=== PATIENT | male | born 1960 | race Caucasian/White ===

== ENCOUNTER → 2020-07-24 | Outpatient (CLI) | payer OTHER ==
--- NOTE | 2020-07-24 15:54 | KCIC ---
XR KNEE_RT 1-2 VIEWS 07/24/2020 12:55 PM INDICATION: Right knee pain. Burning up and down the right leg COMPARISON: None available. TECHNIQUE: 3 views of the right knee are provided. FINDINGS: There is a healed fracture deformity image of the right femur. No significant knee joint effusion. Th ere is no acute fracture or dislocation. Joint spaces are maintained. Bone mineralization is within n ormal limits. Regional soft tissues are within normal limits. There is no soft tissue gas or osseous erosion. No radiopaque foreign body. Electronically signed by: Shantell Hooper MD (07/24/2020 3:52 PM) [id number]
== END ==
LOC: KCIC 12:48
PROVIDERS: ATTEND Family Medicine
DX: M25.561 Pain in right knee (principal)
CPT/HCPCS: 73560